=== PATIENT | female | born 1995 | race Asian ===

== ENCOUNTER 2017-01-10 19:43 | Emergency (ER) | payer OTHER ==
[2017-01-10 19:53] VITALS: BP 127/91; PULSE 109; TEMP 98.2; BMI 18.7
[2017-01-10 20:30] LABS: URINE APPEARANCE Clear; URINE BILIRUBIN Negative (NEGATIVE); URINE BLOOD NEGATIVE (NEGATIVE); URINE COLOR YELLOW; URINE GLUCOSE (UA) Negative (NEGATIVE); URINE KETONE Negative (NEGATIVE); URINE LEUK ESTERASE Negative (NEGATIVE); URINE NITRITE Negative (NEGATIVE); URINE PROTEIN Negative (NEGATIVE); URINE UROBILINOGEN 0.2 E.U/dl (0.2-1.0)
--- NOTE | 2017-01-10 20:39 | PDOC ---
History of Present Illness - General History Source: Patient Exam Limitations: No Limitations - History of Present Illness Initial Comments: 01/10/17 21:02 The patient is a 21 year old female, A0 with a significant past medical history of yeast infection (1 year ago), anemia and IUD (5 months no complications), who presents to the emergency department with abdominal pain and nausea for the last 2 days. She states that she was having vaginal intercourse 2 days ago when she started bleeding vaginally, lasting for 2 hours before resolving. She notes that she is not on her period. She states the abdominal pain began soon afterwards. She describes her abdominal pain as ranging from mild to moderate and diffused throughout the lower abdomen. She denies radiation of the pain. She notes that the pain is exacerbated when the abdomen is palpated. She states that she became nauseous as well and had 1 vomiting episode, nonbilious and nonbloody in nature. The patient denies chest pain, shortness of breath, headache and dizziness. Denies fever, chills, diarrhea and constipation. Denies dysuria, frequency, urgency and hematuria. Allergies: Shellfish Past surgical history: None reported Social history: Social alcohol use. No tobacco or drug use reported <Gucci Trevino - Last Filed: 01/10/17 21:02> <Effie Lozada - Last Filed: 01/11/17 05:04> - General Chief Complaint: Pain, Acute Stated Complaint: ABDOMINAL PAIN Time Seen by Provider: 01/10/17 19:46 Past History <Gucci Trevino - Last Filed: 01/10/17 21:02> - Past Medical History Anemia: Yes Other medical history: IUD - Reproductive History Cervical CA: No Dysfunctional Uterine Bleeding: No Ectopic : No Endometrial CA: No Polycystic Ovaries: No Tubal Ligation: No - Immunization History Immunization Up to Date: Yes - Psycho/Social/Smoking Cessation Hx Anxiety: No Suicidal Ideation: No Smoking History: Never smoked Have you smoked in the past 12 months: No Information on smoking cessation initiated: No Hx Alcohol Use: Yes (SOCIAL) Drug/Substance Use Hx: No Substance Use Type: None <Effie Lozada - Last Filed: 01/11/17 05:04> - Past Medical History Allergies/Adverse Reactions: Allergies Allergy/AdvReac Type Severity Reaction Status Date / Time No Known Drug Allergies Allergy Verified 01/10/17 19:45 shellfish derived Allergy Verified 01/10/17 19:45 Home Medications: Ambulatory Orders Levofloxacin [Levaquin -] 500 mg PO DAILY #7 tablet 01/10/17 Metronidazole [Flagyl -] 500 mg PO BID #14 tablet 01/10/17 Review of Systems - Review of Systems Able to Perform ROS?: Yes Comments:: 01/10/17 21:02 GENERAL/CONSTITUTIONAL: No fever or chills. No weakness. HEAD, EYES, EARS, NOSE AND THROAT: No change in vision. No ear pain or discharge. No sore throat. CARDIOVASCULAR: No chest pain or shortness of breath RESPIRATORY: No cough, wheezing, or hemoptysis. GASTROINTESTINAL: (+) Abdominal pain, Nausea and vomiting. No diarrhea or constipation. GENITOURINARY: No dysuria, frequency, or change in urination. MUSCULOSKELETAL: No joint or muscle swelling or pain. No neck or back pain. SKIN: No rash NEUROLOGIC: No headache, vertigo, loss of consciousness, or change in strength/ sensation. ENDOCRINE: No increased thirst. No abnormal weight change HEMATOLOGIC/LYMPHATIC: No anemia, easy bleeding, or history of blood clots. ALLERGIC/IMMUNOLOGIC: No hives or skin allergy. <Gucci Trevino - Last Filed: 01/10/17 21:02> *Physical Exam - Vital Signs Last Vital Signs Temp Pulse Resp BP Pulse Ox 98.2 F 109 H 18 127/91 100 01/10/17 19:47 01/10/17 19:47 01/10/17 19:47 01/10/17 19:47 01/10/17 19:47 - Physical Exam Comments: 01/10/17 21:03 GENERAL: Awake, alert, and fully oriented, in no acute distress HEAD: No signs of trauma, normocephalic, atraumatic EYES: PERRLA, EOMI, sclera anicteric, conjunctiva clear ENT: Auricles normal inspection, hearing grossly normal, nares patent, oropharynx clear without exudates. (+) Dry mucosa NECK: Normal ROM, supple, no lymphadenopathy, JVD, or masses LUNGS: No distress, speaks full sentences, clear to auscultation bilaterally HEART: Regular rate and rhythm, normal S1 and S2, no murmurs, rubs or gallops, peripheral pulses normal and equal bilaterally. ABDOMEN: (+) Moderate left lower quadrant tenderness, mild right upper quadrant and lower quadrant tenderness. Mild involuntary guarding. No other paritenial signs. Soft, nondistended, normoactive bowel sounds. No rebound. No masses EXTREMITIES: Normal inspection, Normal range of motion, no edema. No clubbing or cyanosis. NEUROLOGICAL: Cranial nerves II through XII grossly intact. Normal speech, normal gait, no focal sensorimotor deficits SKIN: Warm, Dry, normal turgor, no rashes or lesions noted. <Gucci Trevino - Last Filed: 01/10/17 21:02> - Vital Signs Last Vital Signs Temp Pulse Resp BP Pulse Ox 98.2 F 109 H 18 127/91 100 01/10/17 19:47 01/10/17 19:47 01/10/17 19:47 01/10/17 19:47 01/10/17 19:47 <Effie Lozada - Last Filed: 01/11/17 05:04> ED Treatment Course - ADDITIONAL ORDERS Additional order review: Laboratory Results 01/10/17 01/10/17 20:20 20:20 Urine Color Yellow Urine Appearance Clear Urine pH 6.0 Ur Specific [place] 1.025 Urine Protein Negative Urine Glucose (UA) Negative Urine Ketones Negative Urine Blood Negative Urine Nitrite Negative Urine Bilirubin Negative Urine Urobilinogen 0.2 e.u/dl Ur Leukocyte Esterase Negative Urine HCG, Qual Negative <Gucci Trevino - Last Filed: 01/10/17 21:02> - LABORATORY CBC & Chemistry Diagram: 01/10/17 21:15 01/10/17 21:15 - ADDITIONAL ORDERS Additional order review: Laboratory Results 01/10/17 01/10/17 20:20 20:20 Urine Color Yellow Urine Appearance Clear Urine pH 6.0 Ur Specific [place] 1.025 Urine Protein Negative Urine Glucose (UA) Negative Urine Ketones Negative Urine Blood Negative Urine Nitrite Negative Urine Bilirubin Negative Urine Urobilinogen 0.2 e.u/dl Ur Leukocyte Esterase Negative Urine HCG, Qual Negative <Effie Lozada - Last Filed: 01/11/17 05:04> Progress Note - Progress Note Progress Note: Documentation has been prepared under my direction and personally reviewed by me in its entirety. I attest that this documented accurately reflects all work, treatment, procedures and medical decision making performed by sc. <Effie Lozada - Last Filed: 01/11/17 05:04> Medical Decision Making - Medical Decision Making History and physical as noted above. Pelvic exam performed: Normal female external genitalia; moderate thin, whitish discharge in the vaginal vault. No blood or clots noted. IUD string visualized in the cervix. There was moderate cervical motion tenderness without adnexal tenderness or masses. Chlamydia/GC culture sent. Laboratory evaluation is essentially normal; no elevation of white blood cell count is present. Patient will be treated for early, mild PID with Levaquin 500 mg daily for 1 week and metronidazole 500 mg twice a day for one week. First doses of each of these medications will be given here in the emergency room. Meanwhile, the patient should follow-up with inspecting and testing lead hand. She does not have a inspecting and testing lead hand in the area and she will be given referral information for Dr. Arauz also Dr. Christian coello as well as Dr. Thanh rodriguez. She should return to the emergency room if she has worsening pain or experiences fever/vomiting <Effie Lozada - Last Filed: 01/11/17 05:04> *DC/Admit/Observation/Transfer - Attestations Scribe Attestion: 01/10/17 21:03 Documentation prepared by Gucci Trevino, acting as family practice medical doctor for Effie Lozada MD <Gucci Trevino - Last Filed: 01/10/17 21:02> <Effie Lozada - Last Filed: 01/11/17 05:04> Diagnosis at time of Disposition: Pelvic inflammatory disease - Discharge Dispostion Disposition: HOME Condition at time of disposition: Stable - Prescriptions Prescriptions: Metronidazole [Flagyl -] 500 mg PO BID #14 tablet Levofloxacin [Levaquin -] 500 mg PO DAILY #7 tablet - Referrals Referrals: Nicole Arauz MD [Staff Physician] - Call tomorrow - Patient Instructions Printed Discharge Instructions: DI for Pelvic Inflammatory Disease Additional Instructions: Drink plenty of fluids Levaquin 500 mg daily for 7 days Metronidazole 500 mg twice a day for 7 days Follow-up with inspecting and testing lead hand within the next 3-4 days Return to ER if you have worsening pain or develop vomiting/fever
[2017-01-10] MEDS ORDERED: SODIUM CHLORIDE 1,000 ML IV STA (21:05)
[2017-01-10] MEDS ORDERED: KETOROLAC TROMETHAMINE 30 MG/1 ML VIAL IVPUSH ONE (21:05)
[2017-01-10] MEDS ORDERED: ONDANSETRON 4 MG/2 ML VIAL IVPUSH ONE (21:05)
[2017-01-10] MEDS ORDERED: ONDANSETRON 4 MG/2 ML VIAL ONE (21:19)
[2017-01-10] MEDS ORDERED: KETOROLAC TROMETHAMINE 30 MG/1 ML VIAL ONE (21:19)
[2017-01-10 21:35] LABS: BASOPHIL 0.6 % (0-2.0); EOSINOPHIL 2.8 % (0-4.5); MCH 31.3 pg (25.7-33.7); MCHC 34.5 g/dl (32.0-36.0); MEAN CELL VOLUME 90.6 fl (80-96); MEAN PLT VOLUME 8.2 fl (7.5-11.1); NEUTROPHILS 57.8 % (42.8-82.8); PLATELET COUNT 225 K/MM3 (134-434); RDW 12.1 % (11.6-15.6); WHITE BLOOD COUNT 6.5 K/mm3 (4.0-10.8)
[2017-01-10 21:54] LABS: ALBUMIN 3.9 g/dl (3.5-5.0); ALK PHOS 53 U/L (32-92); ANION GAP 5 (8-16); BILIRUBIN,TOTAL 0.5 mg/dl (0.2-1.0); CALCIUM 8.6 mg/dl (8.4-10.2); CO2 24 mmol/L (22-28); CREATININE 0.5 mg/dl (0.6-1.3); GLUCOSE,RANDOM 107 mg/dl (74-106); SGOT/AST 19 U/L (10-42); SGPT/ALT 10 U/L (10-40); TOT PROT 6.7 g/dl (6.4-8.3)
[2017-01-10 22:01] LABS: COCKROFT - GAULT NT
[2017-01-10] MEDS ORDERED: metroNIDAZOLE 500 MG TABLET PO ONE (23:14)
[2017-01-10] MEDS ORDERED: LEVOFLOXACIN 500 MG TABLET (FP) PO ONE (23:14)
[2017-01-10] MEDS ORDERED: metroNIDAZOLE 250 MG TABLET ONE (23:26)
[2017-01-10] MEDS ORDERED: LEVOFLOXACIN 500 MG TABLET (FP) ONE (23:26)
== END 2017-01-10 23:36 | disposition home or self-care (01) ==
LOC: FER 19:43
PROC: 3E0333Z Introduction of Anti-inflammatory into Peripheral Vein, Percutaneous Approach (ICD-10-PCS; principal; 2017-01-10)
PROC: 3E03329 Introduction of Other Anti-infective into Peripheral Vein, Percutaneous Approach (ICD-10-PCS; 2017-01-10)
PROC: 3E0337Z Introduction of Electrolytic and Water Balance Substance into Peripheral Vein, Percutaneous Approach (ICD-10-PCS; 2017-01-10)
DX: N73.9 Female pelvic inflammatory disease, unspecified (principal); D64.9 Anemia, unspecified
CPT/HCPCS: 36415; 80053; 81003; 84703; 85025; 87491; 87591; 99281-25